=== PATIENT | female | born 1975 ===

== ENCOUNTER 2021-12-03 08:44 | Outpatient (CLI) | payer OTHER, SELFPAY ==
[2021-12-03 09:39] LABS: D Dimer 0.47 ug/mIFEU (0-0.59)
== END 2021-12-03 08:45 | disposition home or self-care (01) ==
LOC: LAB 08:49
PROVIDERS: Visit Provider Family Medicine
DX: R06.00 Dyspnea, unspecified (principal)
CPT/HCPCS: 85378